=== PATIENT | male | born 1945 | race Caucasian/White ===

== ENCOUNTER 2018-10-31 08:57 | Inpatient (IN) ==
[2018-10-31] MEDS ORDERED: *HR* FentaNYL (PF) 100 MCG/2 ML VIAL ONE ×2 (09:03→11:26)
[2018-10-31] MEDS ORDERED: Dexamethasone 4 MG/ML VIAL ONE (09:03)
[2018-10-31] MEDS ORDERED: Ondansetron 4 MG/2 ML VIAL ONE (09:03)
[2018-10-31] MEDS ORDERED: *HR* Rocuronium Bromide 50 MG/5 ML VIAL ONE ×2 (09:03→11:01)
[2018-10-31] MEDS ORDERED: Lidocaine -MPF 2% 2 ML VIAL ONE (09:03)
[2018-10-31] MEDS ORDERED: *HR* Midazolam HCl 2 MG/2 ML VIAL ONE (09:03)
[2018-10-31] MEDS ORDERED: Lidocaine -MPF 4% 5 ML AMPUL ONE (09:03)
[2018-10-31] MEDS ORDERED: *HR* Propofol 200 MG/20 ML VIAL IVP ONE ×2 (09:03→09:12)
[2018-10-31] MEDS ORDERED: *HR* Succinylcholine 200 MG/10 ML VIAL IVP ONE (09:12)
[2018-10-31] MEDS ORDERED: Ringers Solution, Lactated 1,000 ML IVC SCH ×2 (09:30→10:00)
--- NOTE | 2018-10-31 09:31 | Anesthesia Evaluation PreOp ---
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: Other ( migraines) Other Medical History: Renal (stones) Anesthesia History: No Prior Anesthetic Complications, Past Anesthesia (TKA, hernia, right wrist fusion, b/l CTR) Alcohol Use: none Drug use: none Medications and Allergies Lisinopril [Zestril] 40 mg PO DAILY 10/31/18 [History] OxyCODONE/APAP 5/325 [Percocet 5/325 MG] 1 tab PO Q4H PRN 10/31/18 [History] Temazepam [Restoril] 30 mg PO HS 10/31/18 [History] Tramadol HCl [Ultram] 50 mg PO QID PRN 10/31/18 [History] Allergy/AdvReac Type Severity Reaction Status Date / Time No Known Allergies Allergy Verified 10/31/18 09:31 - Meds/Allergy Pre-op Review Medications Reviewed: Yes Allergies Reviewed: Yes Beta Blockers on Current Med List: No Anesthesia Results - Imaging EKG: report reviewed (ECTOPIC ATRIAL RHYTHM BORDERLINE LEFT AXIS DEVIATION VOLTAGE CRITERIA FOR LVH NONSPECIFIC ST-WAVE ABNORMALITY) Additional studies: CT chest: IMPRESSION: Scattered ground-glass opacity seen throughout the lungs, slightly less pronounced than prior CT 09/09/2018. Ground-glass opacities are nonspecific can be due to atelectasis, early pneumonia, or early pulmonary edema. 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 Stable more focal pulmonary nodules Healing compression fractures. Correlate with any focal back pain Anesthesia Exam Selected Entries 10/31/18 09:32 Temperature 98.3 F Pulse Rate 94 Respiratory Rate 18 Blood Pressure 154/105 O2 Sat by Pulse Oximetry 96 Weight: 79kg BMI25 NPO (# of Hours): 8 - HEENT Pupil (Motor): EOMI Teeth: Edentulous Oral Opening: Greater than 3 - RETIREMENT OFFICER LOC: Oriented RETIREMENT OFFICER Motor: Normal RUE, Normal LUE, Normal RLE, Normal LLE, Normal Face RETIREMENT OFFICER Sensory: Normal: RUE, LUE, RLE, LLE, Face - Cardiac Rhythm: Regular Murmur: None - Pulmonary Breath Sounds: bilateral Clear (labored with O2 nasal canula) Respiratory Effort: Symmetrical Anesthesia Assess/Plan ASA Score: 3 Level of consciousness: Cooperative, Oriented, Tranquil Anesthetic Plan: General Monitoring Plan: Standard Monitors Recovery Plan: PACU (agrees to GA)
--- NOTE | 2018-10-31 09:47 | History & Physical Report ---
Date of Encounter: 10/31/18 Time of Encounter: 09:46 24 Hour HP Update - Instructions Instructions: If the History and Physical is less than 30 days old and was completed prior to A.M. admission and or procedure and has NOT been updated on calendar day of procedure please complete this update prior to performing procedure. - Update Patient reports changes in Medical Condition: No Changes in examination, assessment, or condition: No Changes in Medication: No Preop tests/diagnostics Reviewed: Yes Pre-Op MRSA Screen: Negative Surgery Remains Indicated: Yes Consent for Planned Operative Procedure(s) Verified: Yes - Pre-Operative Checklist Preoperative Checklist Indicated: Yes Prophylactic Antibiotic Ordered: No (need tissue cultures before antibx ) Home Medications Include Beta Chuyita: No Beta Chuyita Taken Today (Day of Surgery): No Beta Chuyita Taken Yesterday (Day Prior to Surgery): No Is VTE Prophylaxis Indicated?: Yes
[2018-10-31] MEDS ORDERED: Ketorolac 15 MG/ML VIAL IVP ONE (09:59)
[2018-10-31] MEDS ORDERED: *HR* Promethazine 25 MG/ML VIAL IVP PRN (09:59)
[2018-10-31] MEDS ORDERED: *HR* OxyCODONE Immed Rel 5 MG TABLET PO PRN (09:59)
[2018-10-31] MEDS ORDERED: traMADol 50 MG TABLET PO PRN (09:59)
[2018-10-31] MEDS ORDERED: SUGAMMADEX SODIUM 500 MG/5 ML VIAL IV ONE (10:00)
[2018-10-31] MEDS ORDERED: KETAMINE HCL 50 MG/ML SYRINGE IV ONE (10:00)
[2018-10-31] MEDS ORDERED: *HR* Vasopressin 20 UNIT/ML VIAL ONE (10:01)
[2018-10-31] MEDS ORDERED: Hydrocortisone Sodium Succ 100 MG/2 ML VIAL ONE (10:05)
[2018-10-31] MEDS ORDERED: *HR* PHENYLEPHRINE 1,000 MCG/10 ML SYRINGE IVP ONE (10:28)
[2018-10-31] MEDS ORDERED: CeFAZolin Syr 2,000MG/20 ML 2,000 MG/20 ML SYRINGE IVPB ONE (10:38)
[2018-10-31] MEDS ORDERED: Acetaminophen IV 1,000 MG/100 ML INFUS..BTL ONE (10:53)
[2018-10-31] MEDS ORDERED: Ketorolac 30 MG/ML VIAL ONE (11:35)
--- NOTE | 2018-10-31 11:52 | Operative Note ---
Date of procedure: 10/31/18 Pre-op diagnosis: ILD Post-op diagnosis: same Procedure: bronchoscopy with aspiration robotic wedge resection of upper and middle lobes Anesthesia: GETA Local Anesthetics: 0.5% Sensorcaine HCL SubQ (cc) Surgeon: Tiago Monzon Was there an assistant librarian present: No Estimated blood loss (cc): 5 Specimen: wedge upper and middle lobes permanent and cultures Condition: stable Disposition: PACU Procedure in Detail: Mr. Haines was brought to the operating room and placed on the operating room table in the supine position. After undergoing general anesthesia with sequential compressive devices bilateral lower extremities a flexible bronchoscopy was performed. The double-lumen endotracheal tube was taken out of the right lower lobe bronchus and placed into the left mainstem bronchus for single lung ventilation. Small amounts of copious secretions were aspirated from the right and left tracheobronchial tree until clear. Patient was then placed on the operating room table in the left lateral decubitus position with care to pad all pressure points. He was prepped and draped in the usual sterile fashion. Thoracoscopy ports were placed in the da Krista robot was docked. Nodularity within the right upper lobe in areas of the right middle lobe were appreciated. Generous wedge resections of the right upper lobe and right middle lobe to include the nodularity and areas of normal-appearing were obtained. Once specimens were obtained, perioperative antibiotics were administered so that cultures would not be affected as the patient has been in the ICU and an outside hospital for nearly a month with no diagnosis or treatment of his current lung disease. Intercostal nerve blocks were performed and the chest tube was placed the specimens were brought out through the accessory port. The robot was removed the ports removed and the incisions closed with 0 Vicryl and 4-0 Monocryl subcuticular stitches. Dressings consisted of Steri-Strips and sterile gauze. Patient was taken to recovery room.
[2018-10-31] MEDS: *HR* FentaNYL (PF) 100 MCG/2 ML VIAL IVP PRN ×4 (12:05→12:36)
[2018-10-31] MEDS ORDERED: Naloxone 0.4 MG/ML INJ IVP PRN (13:26)
[2018-10-31] MEDS ORDERED: Ondansetron 4 MG/2 ML VIAL IVP PRN (13:26)
[2018-10-31] MEDS ORDERED: 0.9 % Sodium Chloride 1,000 ML IVC SCH (13:26)
[2018-10-31] MEDS ORDERED: *HR* HYDROcodone/Acet 5/325 mg TABLET PO PRN (13:26)
[2018-10-31] MEDS ORDERED: *HR* Labetalol 20 MG/4 ML SYRINGE IVP ONE (13:40)
[2018-10-31] MEDS ORDERED: cloNIDine HCl 0.1 MG TABLET ONE (13:40)
[2018-10-31] MEDS: *HR* HYDROmorphone (PF) 1 MG/ML SYRINGE IVP PRN ×2 (14:11→14:18)
[2018-10-31] MEDS ORDERED: Ringers Solution, Lactated 1,000 ML ONE (14:19)
--- NOTE | 2018-10-31 15:13 | Anesthesia Evaluation Post Op ---
Date of Encounter: 10/31/18 Time of Encounter: 15:00 - Vital Signs Vital Signs: Vital Signs/O2 Sat/Glucose, Most Current Temp Pulse Resp BP Pulse Ox 10/31/18 14:59 97.4 F L 74 17 151/96 98 10/31/18 14:34 98.4 F 71 14 127/87 95 10/31/18 14:14 80 24 133/85 98 10/31/18 14:03 78 20 141/89 100 10/31/18 13:43 90 24 143/93 97 10/31/18 13:23 91 12 144/98 96 10/31/18 13:13 97.6 F 87 20 138/90 98 10/31/18 13:03 90 24 165/114 96 10/31/18 12:53 87 24 173/104 98 10/31/18 12:38 98 24 180/122 96 10/31/18 12:23 97.7 F 83 24 171/113 98 10/31/18 12:13 80 22 176/110 98 10/31/18 12:03 86 24 173/104 98 10/31/18 11:53 97.6 F 84 20 180/107 96 - Lungs Lungs: Clear Ascult./Percussion - Airway Airway: Non-obstructed - Cardiovascular Regular Rate - Mental Status Mental Status: Alert & Oriented, Answers Appropriately - Pain Pain Scale: 2 - Nausea Vomiting Nausea Vomiting: Not Present - Hydration Hydration: Ice chips - Discharge PostOp Status: Transfer Patient to floor
[2018-10-31] MEDS: Ipratropium/Albuterol Neb 3 ML IH SCH ×2 (15:41→20:30)
[2018-10-31] MEDS: Ketorolac 15 MG/ML VIAL IVP SCH ×3 (16:19→23:42)
[2018-10-31] MEDS: Gabapentin 300 MG CAPSULE PO SCH ×2 (16:20→21:43)
[2018-10-31] MEDS ORDERED: OXYCODONE Oral CONC 10 MG/0.5 ML ORAL.SYG SL PRN (19:04)
[2018-10-31] MEDS: Sennosides/Docusate Sodium TABLET PO SCH (20:10)
[2018-10-31] MEDS: *HR* OxyCODONE/APAP 7.5/325 TABLET PO PRN (20:23)
[2018-10-31] MEDS: Temazepam 15 MG CAPSULE PO SCH (21:43)
[2018-11-01] MEDS: Ipratropium/Albuterol Neb 3 ML IH SCH ×6 (00:05→20:13)
[2018-11-01] MEDS: *HR* OxyCODONE/APAP 7.5/325 TABLET PO PRN ×4 (01:07→22:10)
[2018-11-01] MEDS: Ketorolac 15 MG/ML VIAL IVP SCH ×3 (05:25→16:56)
[2018-11-01 05:38] LABS: Hematocrit 31.4 % (37.5-50.1); Mean Corpuscular HGB Conc 30.9 g/dL (31.6-35.5); Mean Corpuscular Hemoglobin 27.2 pg (28.0-33.3); Mean Platelet Volume 9.7 fL (9.4-12.4); Platelet Count 161 K/mcL (140-400); Red Blood Count 3.57 M/mcL (4.19-5.50); Red Cell Distribution Width 15.4 % (11.5-14.5)
[2018-11-01 05:41] LABS: Hemoglobin 9.7 g/dL (12.9-16.9)
[2018-11-01 05:55] LABS: BUN/Creatinine Ratio 17 (6-26); Blood Urea Nitrogen 16 mg/dL (8-23); Calcium 8.7 mg/dL (8.6-10.3); Carbon Dioxide 27 mEq/L (23-29); Chloride 107 mEq/L (98-107); Glucose 124 mg/dL (70-105); Magnesium 2.1 mg/dL (1.6-2.6); Osmolality,Calculated 297 (280-300); Sodium 142 mEq/L (136-145); eGFR For Non-African Americans > 60 (> 60)
[2018-11-01] MEDS ORDERED: amLODIPine 5 MG TABLET PO SCH ×2 (09:00→09:10)
[2018-11-01] MEDS: Gabapentin 300 MG CAPSULE PO SCH ×3 (09:01→22:09)
[2018-11-01] MEDS: Lisinopril 20 MG TABLET PO SCH (09:01)
[2018-11-01] MEDS: predniSONE 20 MG TABLET PO SCH (09:01)
[2018-11-01] MEDS: Sennosides/Docusate Sodium TABLET PO SCH ×3 (09:05→22:10)
--- NOTE | 2018-11-01 09:36 | Cardiothoracic Progress Note ---
Date of Encounter: 11/01/18 Time of Encounter: 09:33 - Assessment and plan (1) ILD (interstitial lung disease) Current Visit: Yes Status: Acute The assessment and plan as outlined above was discussed with the patient and/or family members who expressed understanding and agreement. All questions were answered. rounded with nurse mariela. stop ivf, do not wean oxygen lower than 3 L. clamp chest tube at midnight (2) Essential hypertension Current Visit: Yes Status: Acute The assessment and plan as outlined above was discussed with the patient and/or family members who expressed understanding and agreement. All questions were answered. under good control (3) BPH (benign prostatic hyperplasia) Current Visit: Yes Status: Acute The assessment and plan as outlined above was discussed with the patient and/or family members who expressed understanding and agreement. All questions were answered. Qualifiers: Lower urinary tract symptom presence: symptoms absent Qualified Code(s): N40.0 - Benign prostatic hyperplasia without lower urinary tract symptoms (4) Chronic respiratory failure with hypoxia, on home O2 therapy Current Visit: Yes Status: Acute The assessment and plan as outlined above was discussed with the patient and/or family members who expressed understanding and agreement. All questions were answered. Vital Signs, Last 4 Hours Temp Pulse Resp BP Pulse Ox 11/01/18 08:02 16 98 11/01/18 07:48 97.3 F L 65 16 113/70 98 Oxgyen Flow Rate Oxygen Flow Rate (LPM) 5 Clinical Data, last 8 Hours Output, Chest Tube Drainage 28 Amount [Right Posterior Chest] Weight 10/30/18 10/31/18 11/01/18 23:59 23:59 23:59 Weight 79.379 kg - Physical Examination General: Conversant, No Apparent Distress, Well developed, Well nourished HEENT: Atraumatic, Normocephaly Cardiac: Reg Rate and Rhythm, Normal S1 and S2 Incision: No signs of infection Chest tubes: Minimal drainage Lungs: Other (faint crackles throughout lung link. ) Neuro: Alert and responsive, No focal deficits noted, Cranial nerves intact, Motor nerves intact Abdomen: Soft, Non-tender, Other (bs present. no n/v.) Extremities: No Clubbing, No Cyanosis - Labs 11/01/18 05:22 11/01/18 05:22 Lab Results, Last 24 hours 11/01/18 11/01/18 05:22 05:22 WBC 8.7 Hgb 9.7 L D Hct 31.4 L Plt Count 161 Sodium 142 Potassium 4.0 Chloride 107 Carbon Dioxide 27 BUN 16 Creatinine 0.93 Glucose 124 H Calcium 8.7 Magnesium 2.1 - Imaging Chest Xray: image reviewed Consult Discharge Plan - Plan Additional Instructions: Please go to outpatient radiology at [facility] on 11-26-18 around 1245 and get an X-ray, before you go see Dr. Monzon. The office will send the order over to Radiology. Referrals: John Connell Jr, MD [Primary Care Provider] - Tiago Monzon MD [Partnered Physician] - 11/26/18 1:45 pm
[2018-11-01] MEDS: Temazepam 15 MG CAPSULE PO SCH (22:09)
[2018-11-02] MEDS: Ketorolac 15 MG/ML VIAL IVP SCH ×2 (00:25→04:55)
[2018-11-02] MEDS: Ipratropium/Albuterol Neb 3 ML IH SCH ×4 (00:52→10:59)
[2018-11-02] MEDS: *HR* OxyCODONE/APAP 7.5/325 TABLET PO PRN ×2 (04:56→09:42)
[2018-11-02] MEDS: predniSONE 20 MG TABLET PO SCH (08:34)
[2018-11-02] MEDS: Lisinopril 20 MG TABLET PO SCH (08:34)
[2018-11-02] MEDS: Sennosides/Docusate Sodium TABLET PO SCH (08:35)
[2018-11-02] MEDS: Gabapentin 300 MG CAPSULE PO SCH (08:35)
--- NOTE | 2018-11-02 09:10 | Discharge Summary ---
Orders not resulted at time of discharge: Pending orders 10/25/18 11:47 Red Blood Cells [BBK] Routine 10/31/18 AFB Culture, Tissue [TB] Routine AFB Culture, Tissue [TB] Routine AFB Smear [TB] Routine AFB Smear [TB] Routine Culture,Anaerobic [RM] Routine Culture,Anaerobic [RM] Routine Culture,Tissue (Biopsy) [RM] Routine Culture,Tissue (Biopsy) [RM] Routine Fungal Culture [MYC] Routine Fungal Culture [MYC] Routine Viral Culture,Respiratory [RM] Routine Viral Culture,Respiratory [RM] Routine 10/31/18 11:26 Surgical Pathology [PTH] Routine Date of Encounter: 11/02/18 Time of Encounter: 09:06 - Discharge Diagnosis (1) ILD (interstitial lung disease) Priority: Primary Status: Acute - Hospital Course Hospital course: Mr. Haines is a 73 year old male The patient is a 73-year-old gentleman with a history of interstitial lung disease. He was on oxygen prior to admission up to 3-4 L. On 10/31/2018, Dr. Monzon Took the patient to the operating room for bronchoscopy and robotic wedge resection of the right upper and middle lobes. The patient tolerated this procedure well. On November 02, the chest tube was removed. Chest x-ray after removal revealed a tiny, unchanged apical pneumothorax. The patient was discharged on November 02. At that time he was afebrile. Lungs were clear to percussion and auscultation. Heart was in a normal sinus rhythm. All incisions were healing well without signs of infection. Discharge medications are in the med rec and were unchanged from preadmission. He did have a supply of narcotics at home from his primary care doctor. He was to return to his previous and regular diet. He was to avoid heavy lifting for a total of 1-2 months after surgery. He was to walk as much as possible. He did have oxygen at home. He was to avoid driving for 1-2 weeks. He was to follow-up and see Dr. Monzon and Becki as directed. He was to call sooner for any difficulties. - Time Spent with Patient Total time spent providing and/or coordinating discharge services: - Discharge Medications Prescriptions: Continue Tramadol HCl [Ultram] 50 mg PO QID PRN PRN Reason: Mild To Moderate Pain Temazepam [Restoril] 30 mg PO HS OxyCODONE/APAP 5/325 [Percocet 5/325 MG] 1 tab PO Q4H PRN PRN Reason: Moderate Pain Lisinopril [Zestril] 40 mg PO DAILY Acetaminophen [Tylenol] 650 mg PO Q6HR PRN MDD 3000mg/day PRN Reason: Mild To Moderate Pain Acetylcysteine [U-Aqywsf-s-Cysteine] 600 mg PO TID amLODIPine [Norvasc] 5 mg PO DAILY Ipratropium/Albuterol Sulfate [Combivent Respimat Inhal [place]] 1 puff IH Q6H PRN PRN Reason: Shortness Of Breath Ipratropium/Albuterol Neb [Duoneb] 3 ml IH Q6HR PRN PRN Reason: Shortness Of Breath Multivitamin [One Daily Multivitamin] 1 tab PO DAILY Omeprazole [PriLOSEC] 40 mg PO DAILY PredniSONE [Deltasone] 10 mg PO DAILY Rivaroxaban [Xarelto] 20 mg PO DAILY Tamsulosin HCl [Flomax] 0.4 mg PO DAILY Home Medications: Acetaminophen [Tylenol] 650 mg PO Q6HR PRN MDD 3000mg/day 10/31/18 [History] Acetylcysteine [H-Uwagce-b-Cysteine] 600 mg PO TID 10/31/18 [History] Ipratropium/Albuterol Neb [Duoneb] 3 ml IH Q6HR PRN 10/31/18 [History] Ipratropium/Albuterol Sulfate [Combivent Respimat Inhal [place]] 1 puff IH Q6H PRN 10/31/18 [History] Lisinopril [Zestril] 40 mg PO DAILY 10/31/18 [History] Multivitamin [One Daily Multivitamin] 1 tab PO DAILY 10/31/18 [History] Omeprazole [PriLOSEC] 40 mg PO DAILY 10/31/18 [History] OxyCODONE/APAP 5/325 [Percocet 5/325 MG] 1 tab PO Q4H PRN 10/31/18 [History] PredniSONE [Deltasone] 10 mg PO DAILY 10/31/18 [History] Rivaroxaban [Xarelto] 20 mg PO DAILY 10/31/18 [History] Tamsulosin HCl [Flomax] 0.4 mg PO DAILY 10/31/18 [History] Temazepam [Restoril] 30 mg PO HS 10/31/18 [History] Tramadol HCl [Ultram] 50 mg PO QID PRN 10/31/18 [History] amLODIPine [Norvasc] 5 mg PO DAILY 10/31/18 [History] Allergies/Adverse Reactions: Allergy/AdvReac Type Severity Reaction Status Date / Time No Known Allergies Allergy Verified 10/31/18 09:31 Date of admission: 10/31/18 13:17 Primary care physician: John Connell Jr, MD Procedure(s) Performed: 10/31/2018. Bronchoscopy and robotic wedge resection of the right upper and middle lobes. Discharging clinician: Joss Preciado Anticipated date of discharge: 11/02/18 - Patient Status Disposition: Home, Self-Care Condition: Fair Functional capacity at discharge: independent ambulation Overall status at discharge: patient is progressing back to baseline - Discharge Instructions Follow Up With: John Connell Jr, MD [Primary Care Provider] - Tiago Monzon MD [Partnered Physician] - 11/12/18 1:45 pm
[2018-11-02 09:24] VITALS: BP 126/79
== END 2018-11-02 14:26 | disposition home or self-care (01) | DRG 164 ==
LOC: SAMDAY 08:57 → 2NNU 13:17
PROVIDERS: ADMIT Thoracic Surgery (Cardiothoracic Vascular Surgery); ATTEND Thoracic Surgery (Cardiothoracic Vascular Surgery)